=== PATIENT | male | born 1955 | race Caucasian/White ===

== ENCOUNTER 2019-03-15 13:59 | Inpatient (IN) ==
[2019-03-15] MEDS ORDERED: ZOFRAN IV PRN (17:06)
[2019-03-15] MEDS ORDERED: TYLENOL PO PRN (17:06)
[2019-03-15 18:00] LABS: WBC 6.01 X1000 (4.8-10.8)
[2019-03-15 18:01] LABS: BASO# 0.05 X1000 (0.0-0.2); BASO% 0.8 % (0.0-0.8); EOS# 0.16 X1000 (0.0-0.7); EOS% 2.7 % (0.0-10.0); HEMATOCRIT 47.6 % (42.0-52.0); LYMPH# 0.86 X1000 (1.2-3.4); LYMPH% 14.3 % (20.5-51.1); MCH 28.3 PG (27-31); MCHC 31.5 g/dL (33-37); MCV 89.8 FL (81-99); MONO# 0.32 X1000 (0.11-0.59); MONO% 5.3 % (1.7-9.3); MPV 10.5 FL (7.4-10.4); NEUT# 4.62 X1000 (1.4-6.5); NEUT% 76.9 % (42.2-75.2); PLT 209 X1000 (130-400); RDW 15.6 % (11.5-14.5)
[2019-03-15 18:12] LABS: INR 3.22; PROTIME 33.9 Seconds (11.0-16.0)
[2019-03-15 18:13] LABS: PTT 44.3 Seconds (22.3-41.8)
--- NOTE | 2019-03-15 18:22 | HISTORY AND PHYSICAL ---
CHIEF COMPLAIN: This patient has been transferred from [facility] due to abdominal distention and apparently the possibility of cecostomy tube malfunctioning. 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 Apparently the CVA was related to a thrombus at the level of the brain stem and since then, like I said, he has been quadriplegic. He is also nonverbal but he is able to understand my questions and answers all of them moving his head for yes or no. I do not have any family members at the bedside at this moment, but apparently he has been having abdominal distention for 2 weeks. He was admitted at [facility] on 03/10/2019 for abdominal distention. They tried some treatment on this patient but apparently it did not work. I have been told that there is a possibility that the cecostomy tube has been pulled out but again, I do not have that information with me. It looks like they communicated with Dr. Ye from Surgery Department and he will evaluate this patient here at [facility]. I am ordering lab work and images including chest x-ray and abdomen x-ray. Also I am getting electrolytes, CBC, CMP, PT, PTT, INR, CK level as well, CRP, blood culture, urinalysis with urine culture. I do not have any results back get. REVIEW OF SYSTEM: Unknown. Patient is not able to communicate with me and no family members are at the bedside. 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 FAMILY HISTORY: Noncontributory. SOCIAL HISTORY: It looks like this patient lives in a residential. ALLERGIES: Listed that he is allergic to fentanyl and Nubain. PHYSICAL EXAMINATION: VITAL SIGNS: Temperature 97.6 degrees, pulse 71, respiratory rate 24, blood pressure 130/86, oxygen saturation 100% on a trach collar. HEENT: Head normocephalic no trauma PERRLA. NECK: Supple. He does have a tracheostomy that looks fine. Central trachea. CHEST: Some crepitus at the bases. Decreased breath sounds at the bases as well. ABDOMEN: Soft. It is distended. Positive bowel sounds but decreased. He has a feeding tube and another tube on the right side of the abdomen. I do not see any secretions coming from it. EXTREMITIES: Trace edema. No clubbing. No cyanosis. He has a footdrop bilaterally. Decreased muscle mass. NEUROLOGICAL: This patient is awake, alert. He is following commands and answering my questions yes or no with moving his head, but he is unable to move his upper extremity or lower extremity; he is quadriplegic. LABORATORY: No lab work at this time. Pending results. ASSESSMENT AND PLAN: 1. Abdominal distention with the possibility of cecostomy tube malfunction. There is a possibility that this tube has been pulled out, but I am not quite sure. Apparently they talked already with Surgery Department which has accepted the patient. His abdomen is distended. Pending x-ray of the abdomen and chest x-ray as well. 2. Hypertension, stable. I do not see any blood pressure medication listed on his home medications, which we need to corroborate. Blood pressure at this moment seems to be stable. 3. Coagulopathy with chronic anticoagulation. For now I will hold the warfarin. I am not sure if this patient will have a procedure done. Probably he will need vitamin K and/or FFP to control his INR but I will wait for the results. 4. Brain stem infarct 15 years ago, resulting in quadriplegia. Aware. 5. History of chronic obstructive pulmonary disease, not in exacerbation. 6. Thrombocytopenia, history of. I do not have any results at this moment, I will wait for them. 7. Gastroesophageal reflux disease. I will put this patient on PPIs IV. 8. The patient seems to be stable at this moment. His abdomen is distended. Surgery Department will evaluate this patient. Pending chest x-ray, abdomen x-ray, and lab work at this moment. I will put him on IV fluids with normal saline and also Clinimix. Also I will put this patient n.p.o. I am not sure about his code status because the patient is by himself. I will wait for family members. cc: Darrius Suarez MD
[2019-03-15 18:23] LABS: AGAP 10; ALB/GLOB RATIO 0.9; ALBUMIN 2.9 g/dL (3.5-5.0); ALKALINE PHOSPHATASE 103 U/L (32-122); BUN 8 mg/dL (8-22); CALCIUM 7.6 mg/dL (8.8-10.2); CHLORIDE 115 mmol/L (98-107); COSMO 291; CREATININE 0.5 mg/dL (0.7-1.2); ESTIMATED GFR > 60; GLUCOSE 74 mg/dL (70-104); GOT 17 U/L (10-34); GPT 24 U/L (10-44); MAGNESIUM 2.2 mg/dL (1.5-2.7); POTASSIUM 4.2 mmol/L (3.5-5.1); SODIUM 148 mmol/L (136-145); TCO2 23 mmol/L (25-35); TOTAL BILIRUBIN 0.25 mg/dL (0.20-1.00); TOTAL PROTEIN 6.3 g/dL (6.3-8.3)
--- NOTE | 2019-03-15 18:45 | EKG Report ---
Test Performed on : 03/15/2019 6:00:01 PM Test Reason : rythm eval Blood Pressure : / mmHG Vent. Rate : 073 BPM Atrial Rate : 073 BPM P-R Int : 150 ms QRS Dur : 094 ms QT Int : 386 ms P-R-T Axes : 051 020 030 degrees QTc Int : 425 ms Normal sinus rhythm. Normal ECG When compared with ECG of 03-JUN-2014 12:56, Nonspecific T wave abnormality no longer evident in Anterior leads Confirmed by Pool PALACIO, Daren Skelton ([id number]) on 03/16/2019 7:04:25 AM
--- NOTE | 2019-03-15 19:14 | Diag Imaging Result Doc PS360 ---
EXAM: CHEST-2 VIEWS INDICATION: r/o pna TECHNIQUE: 2 views COMPARISON: 01/26/2016 FINDINGS: Tracheostomy tube is stable. There is stable elevation of the right hemidiaphragm with marked colonic distention underlying the diaphragms, which has also been seen on many previous studies and assumed to be chronic. There is suggestion of mild atelectasis at the lung bases. There is no discrete pleural fluid collection or pneumothorax. The cardiomediastinal silhouette and central vasculature are grossly unremarkable. IMPRESSION: Mild bibasilar subsegmental atelectasis. No definite acute chest pathology, otherwise. Electronically signed by Chandana Jon 03/15/2019 7:12 PM
--- NOTE | 2019-03-15 19:16 | Diag Imaging Result Doc PS360 ---
EXAM: ABDOMEN FLAT/UPRIGHT INDICATION: abd pain TECHNIQUE: 5 views COMPARISON: None. FINDINGS: There is massive gaseous distention of the colon. This has been seen on many previous studies and is essentially stable since the prior study in 2016. No large volume free abdominal gas is appreciated. Bilateral ureteral stents are noted and IVC filter is in place. IMPRESSION: Massive gaseous distention of the colon, which has been seen on many previous studies, likely chronic. Electronically signed by Chandana Jon 03/15/2019 7:14 PM
--- NOTE | 2019-03-15 20:25 | GENERAL SURGERY CONSULTATION ---
DATE: 03/15/2019 TIME SEEN: 8 p.m. Mr. La is a 64-year-old quadriplegic that I placed a tube cecostomy in 5 years ago for his chronic constipation and colon inertia. He apparently has done okay with that but has had the tube replaced a couple of times and most recently over a month ago only a small Gunter was placed which apparently has compromised his ability to evacuate air. He was admitted to the [facility] and they did not feel they could deal with this so he was transferred to the hospitalist service here and I have been asked to see him. His other medical problems include COPD, gastroesophageal reflux disease, hypertension, apparently history of coagulopathy, he has an IVC filter in place. SOCIAL HISTORY: He is . He does live in a chcf. MEDICATIONS: Listed. ALLERGIES: He is allergic to fentanyl and Nubain. REVIEW OF SYSTEMS: Really not obtainable. EXAM: He is afebrile. Heart rate 70, blood pressure 138/86.Lungs: Bilateral breath sounds. He has a tracheostomy. Heart: Regular rate and rhythm. Abdomen: Soft. It is distended, tympanitic. He has a small catheter exiting the right lower quadrant stoma site. He is awake and alert. LABS: White count 6000, hemoglobin 15, PT 33, INR 3.22. Chemistry is okay. ASSESSMENT: Chronic constipation with colon distention. PLAN: The plan will be to try to upsize his cecostomy tube to help decompress his colon. cc: Fadi Ye MD
[2019-03-15] MEDS: NS 1,000 ML IV SCH (22:42)
[2019-03-15] MEDS: CLINIMIX E 4.25%-5% SOLUTION 1,000 ML IV SCH (22:43)
[2019-03-16] MEDS: PROTONIX IV SCH (05:29)
[2019-03-16] MEDS: SODIUM CHLORIDE 0.9% INJ SCH (05:29)
[2019-03-16 06:11] LABS: BILIRUBIN URINE NEGATIVE (NEGATIVE); BLOOD URINE MODERATE (NEGATIVE); COLOR YELLOW; GLUCOSE URINE NEGATIVE (NEGATIVE); KETONE URINE NEGATIVE (NEGATIVE); LEUKOCYTES URINE MODERATE (NEGATIVE); NITRITE URINE NEGATIVE (NEGATIVE); PH URINE 7.5; PROTEIN URINE 50 mg/dL (NEGATIVE); SP GRAVITY URINE 1.009; TURBIDITY URINE HAZY (CLEAR); URINE SOURCE CATH; UROBILINOGEN URINE NORMAL (NORMAL)
[2019-03-16 06:12] LABS: UR EPITHELIAL CELLS >10 /HPF (<10); URINE BACTERIA NEGATIVE /HPF; URINE RBC TNTC /HPF (<10)
[2019-03-16 07:23] LABS: BASO# 0.03 X1000 (0.0-0.2); BASO% 0.5 % (0.0-0.8); EOS# 0.19 X1000 (0.0-0.7); EOS% 2.9 % (0.0-10.0); HEMATOCRIT 44.9 % (42.0-52.0); HEMOGLOBIN 14.1 g/dL (14.0-18.0); LYMPH# 1.03 X1000 (1.2-3.4); LYMPH% 15.9 % (20.5-51.1); MCH 28.1 PG (27-31); MCHC 31.4 g/dL (33-37); MCV 89.6 FL (81-99); MONO# 0.42 X1000 (0.11-0.59); MONO% 6.5 % (1.7-9.3); MPV 11.3 FL (7.4-10.4); NEUT# 4.81 X1000 (1.4-6.5); NEUT% 74.2 % (42.2-75.2); PLT 194 X1000 (130-400); RBC 5.01 XMIL (4.7-6.1); RDW 15.5 % (11.5-14.5); WBC 6.48 X1000 (4.8-10.8)
[2019-03-16 07:29] LABS: AGAP 7; ALB/GLOB RATIO 0.8; ALBUMIN 2.7 g/dL (3.5-5.0); ALKALINE PHOSPHATASE 104 U/L (32-122); BUN 7 mg/dL (8-22); CALCIUM 7.5 mg/dL (8.8-10.2); CHLORIDE 114 mmol/L (98-107); COSMO 282; CREATININE 0.5 mg/dL (0.7-1.2); ESTIMATED GFR > 60; GLUCOSE 82 mg/dL (70-104); GOT 20 U/L (10-34); GPT 23 U/L (10-44); POTASSIUM 3.8 mmol/L (3.5-5.1); SODIUM 143 mmol/L (136-145); TCO2 22 mmol/L (25-35); TOTAL BILIRUBIN 0.34 mg/dL (0.20-1.00); TOTAL PROTEIN 6.2 g/dL (6.3-8.3)
--- NOTE | 2019-03-16 08:01 | PROGRESS NOTE ---
DATE: 03/16/2019 SUBJECTIVE: This patient is lying comfortably in bed. His is at the bedside. He was evaluated by the surgery department yesterday, Dr. Ye, and the plan is to try to upsize his cecostomy tube to help decompress his colon. I will try to discuss the case with Dr. Ye today. His INR is still supratherapeutic. I have been holding his medications. OBJECTIVE: Vital Signs: Temperature 97.6 degrees, pulse 73, respiratory rate 18, blood pressure 115/78, oxygen saturation 94% on a trach collar. HEENT: Head normocephalic. No trauma. PERRLA. Neck: Supple. He has a tracheostomy tube that looks fine. Central trachea. Chest: Some crepitus at the bases. Decreased breath sounds at the bases as well. Abdomen: Soft. It is distended. Decreased bowel sounds. He has a feeding tube and he has a cecostomy tube in his abdomen. I do not see any secretion coming out from it. No signs of infection. Extremities: Trace edema. No clubbing. No cyanosis. He has bilateral footdrop. Decreased muscle mass. Neurological Examination: This patient is awake. He is alert. He is following commands and answering my questions. He is moving his head but he is not able to talk. He is quadriplegic. Laboratory: WBCs 6.4, hemoglobin 14.1, hematocrit 44.9, platelets 194,000. Pending CMP, pending PT/INR. ASSESSMENT AND PLAN: 1. Abdominal distention with the possibility of cecostomy tube malfunction. Dr. Ye has been requested to evaluate this patient and he did it yesterday night. The plan is to upsize the cecostomy tube. I am not quite sure if he is going for surgery today or tomorrow. I will keep this patient nothing per oral and I will continue with intravenous fluids. 2. Hypertension, stable. 3. Coagulopathy with chronic anticoagulation. This patient has been on warfarin, which has been on hold. INR is supratherapeutic. I will ask surgery department to see if they want me to decrease the INR and probably put him on a heparin drip. 4. Brainstem infarct 15 years ago, resulting in quadriplegia. Aware. He also has a tracheostomy tube in place and a feeding tube. 5. History of chronic obstructive pulmonary disease, not in exacerbation. 6. Thrombocytopenia, history of. His platelet count looks good. 7. Gastroesophageal reflux disease. Continue with proton pump inhibitors intravenously. 8. Supratherapeutic INR. Like I mentioned before, I have been holding the warfarin. If he is going for surgery, probably I need to give him some vitamin K and/or fresh frozen plasma to try to improve the number. 9. Hypernatremia. From lab work done yesterday in the afternoon, I have repeated the CMP in the morning but it is pending at this time. For now, we will continue with the same management. He seems to be stable, pending results. cc: Darrius Suarez MD
[2019-03-16 08:19] LABS: INR 3.56; PROTIME 36.7 Seconds (11.0-16.0)
[2019-03-16 08:20] LABS: PTT 47.4 Seconds (22.3-41.8)
[2019-03-16] MEDS: HYDROCODONE/APAP 7.5-325/15 ML PEG PRN ×3 (11:23→22:00)
[2019-03-16] MEDS: NS 1,000 ML IV SCH ×2 (11:31→21:59)
[2019-03-16] MEDS ORDERED: TEARISOL OPH SOLUTION BOTH EYES PRN ×2 (12:05→12:49)
[2019-03-16] MEDS ORDERED: FLEET ENEMA PR PRN (12:05)
[2019-03-16] MEDS ORDERED: COLACE LIQUID GT PRN (12:05)
--- NOTE | 2019-03-16 13:52 | Diag Imaging Result Doc PS360 ---
EXAM: KUB ABDOMEN 03/16/2019 HISTORY: evaluate position of cecostomy tube TECHNIQUE: Two views, pre and post administration of water-soluble contrast through the Malecot cecostomy catheter. COMMENT: There is a large amount of colonic gas throughout the abdomen. There is retained contrast medium in the urinary bladder. Following injection of contrast through the cecostomy catheter there is contrast within the cecum. IMPRESSION: Cecostomy catheter in the cecum. Electronically signed by Balta Liao 03/16/2019 1:50 PM
[2019-03-16] MEDS ORDERED: NEUTRA-PHOS GT SCH (15:00)
[2019-03-16] MEDS: NEUTRA-PHOS GT SCH ×2 (16:22→21:58)
--- NOTE | 2019-03-16 18:48 | OPERATIVE NOTE ---
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 PREOP DIAGNOSIS: Cecostomy tract stenosis. POSTOP DIAGNOSIS: Cecostomy tract stenosis. This is a quadriplegic 64-year-old who had a cecostomy tube placed 5 years ago. It came out a few months ago and was replaced with a very small like 12 Gunter catheter even possibly a 10 size. This has allowed this tract to narrow and does not empty the cecum adequately. DESCRIPTION OF PROCEDURE: Time-out was accomplished. We decompressed the Gunter and removed it. We then took Hegar dilators and lubricated with KY jelly and began with the smallest one and then progressively worked up with the Hegar dilators until we could admit possibly a 26 Mallinckrodt catheter, were able to introduce a 26 Mallinckrodt catheter. Air did come out and stool as well came out through the Mallinckrodt catheter indicating adequate and appropriate placement. He tolerated it well. An x-ray was ordered. cc: Fadi Ye MD MTDD
[2019-03-16] MEDS: CLINIMIX E 4.25%-5% SOLUTION 1,000 ML IV SCH (21:59)
[2019-03-16] MEDS: TOPAMAX GT SCH (21:59)
[2019-03-16] MEDS: SYSTANE EYE DROPS BOTH EYES SCH (21:59)
[2019-03-16] MEDS: PERICOLACE PEG SCH (21:59)
[2019-03-16] MEDS: WELLBUTRIN PEG SCH (22:00)
[2019-03-17] MEDS: SODIUM CHLORIDE 0.9% INJ SCH (06:45)
[2019-03-17] MEDS: PROTONIX IV SCH (06:45)
[2019-03-17 07:52] LABS: AGAP 9; BUN 8 mg/dL (8-22); CHLORIDE 114 mmol/L (98-107); GLUCOSE 84 mg/dL (70-104); POTASSIUM 3.5 mmol/L (3.5-5.1); SODIUM 145 mmol/L (136-145); TCO2 22 mmol/L (25-35)
[2019-03-17 07:53] LABS: ALBUMIN 2.4 g/dL (3.5-5.0); CALCIUM 7.6 mg/dL (8.8-10.2); COSMO 286; CREATININE 0.5 mg/dL (0.7-1.2); ESTIMATED GFR > 60; MAGNESIUM 1.9 mg/dL (1.5-2.7); PHOSPHORUS 2.1 mg/dL (2.7-4.5)
[2019-03-17 08:12] LABS: INR 2.63; PROTIME 28.8 Seconds (11.0-16.0)
[2019-03-17] MEDS ORDERED: TRANSDERM-SCOP TD SCH (09:00)
[2019-03-17] MEDS: WELLBUTRIN PEG SCH ×2 (09:48→22:24)
[2019-03-17] MEDS: TOPAMAX GT SCH ×2 (09:48→22:24)
[2019-03-17] MEDS: NEUTRA-PHOS GT SCH ×3 (09:48→22:25)
[2019-03-17] MEDS: PEPCID PEG SCH (09:48)
[2019-03-17] MEDS: MIRALAX PEG SCH (09:48)
[2019-03-17] MEDS: CYMBALTA PEG SCH (09:48)
[2019-03-17] MEDS: CLARITIN PEG SCH (09:48)
[2019-03-17] MEDS ORDERED: POTASSIUM PHOSPHATE 21 MMOL in NS 250 ML IV ONE (10:56)
[2019-03-17] MEDS: NS 1,000 ML IV SCH ×2 (12:38→15:51)
[2019-03-17] MEDS: CLINIMIX E 4.25%-5% SOLUTION 1,000 ML IV SCH ×2 (12:41→15:51)
--- NOTE | 2019-03-17 16:17 | PROGRESS NOTE ---
DATE: 03/17/2019 SUBJECTIVE: This patient is lying comfortably in bed. His is at the bedside. He is status post cecostomy tube removal and replacement postoperative day #1 due to cecostomy tract stenosis, it looks like he is doing much better. His abdomen is not that distended compared with yesterday, much better. We will continue with his home medications including warfarin, we will treat this patient the same way he was treated before coming to the hospital at the longterm. If he starts having normal bowel movements like before he will be discharged back to his longterm. OBJECTIVE: Vital Signs: Temperature 98.1 degrees, pulse 77, respiratory rate 16, blood pressure 116/80, oxygen saturation 93 on the tracheostomy collar. HEENT: Head normocephalic, no trauma. PERRLA. Neck: Supple. No JVD. Central trachea. He has a tracheostomy tube that looks fine. Chest: Crepitus at the bases, some decreased breath sounds at the bases as well. Abdomen: Soft, is not distended at this moment. Decreased bowel sounds, he has a feeding tube which is new and a cecostomy tube in the abdomen, I do not see any signs of infection. Extremities: Trace edema, no clubbing, no cyanosis. He has bilateral footdrop, decreased muscle mass. Neurologic: The patient is awake, he is alert. He is following commands and answering my questions. He is moving his head and he is not able to talk. He is quadriplegic. LABORATORY: PT 28.8, INR 2.6. Sodium 145, potassium 3.5, chloride 114, bicarbonate 22, BUN 8, creatinine 0.5, glucose 84, calcium 7.6, magnesium 1.9. ASSESSMENT AND PLAN: 1. Abdominal distention due to cecostomy tract stenosis, the cecostomy tube has been replaced and now is working fine. His abdominal distention is much better, surgery department on board. Once this patient has a regular bowel movement like before we will go ahead and discharge this patient home. 2. Hypertension stable. 3. Coagulopathy with chronic anticoagulation. I will put this patient back on his warfarin. 4. Brain stem infarct 15 years ago resulting in quadriplegia, aware. He also has a tracheostomy tube in place and a feeding tube. 5. History of chronic obstructive pulmonary disease, not in exacerbation. 6. Thrombocytopenia history of, platelet count has been good. 7. Gastroesophageal reflux disease. Continue with PPIs. 8. Supratherapeutic INR, resolved. I will put this patient back on his warfarin. 9. Hypernatremia resolved. 10. Nutritional status. The arborist climber has been placed this patient on a diet. I will decrease the rate of the normal saline and I will increase a little bit the rate of the Clinimix. 11. Hypophosphatemia. I will replace it. cc: Darrius Suarez MD
[2019-03-17] MEDS: HYDROCODONE/APAP 7.5-325/15 ML PEG PRN ×2 (17:44→22:24)
--- NOTE | 2019-03-17 21:45 | GENERAL SURGERY PROGRESS NOTE ---
DATE: 03/17/2019 Mr. La significantly improved today with significant decompression of his GI tract through the Mallinckrodt catheter. He is very pleased with how he has feels today compared to yesterday. I think it is fine for him to go back to his long-term facility and resume his usual bowel regimen there. cc: Fadi Ye MD
[2019-03-17] MEDS: COUMADIN PO SCH (22:24)
[2019-03-17] MEDS: PERICOLACE PEG SCH (22:24)
--- NOTE | 2019-03-18 04:53 | PROGRESS NOTE ---
DATE: 03/17/2019 Called to the bedside. The patient's Mallinckrodt drain to his cecum had been removed, replaced it after doing KY jelly and a hemostat to straighten out the mushroom part of the Mallinckrodt, and replaced it through the previous drain site. Shot a contrast study or tubogram. It appears to my read that it looks like it is in the cecum. Patient tolerated well. We will have the nurses secure it, and continue to monitor. It was previously clamped, so we will have it clamped for right now. cc: Jacob Negro MD MTDSantosh
--- NOTE | 2019-03-18 05:08 | Diag Imaging Result Doc PS360 ---
EXAM: KUB ABDOMEN HISTORY: tubogram of cecostomy tube replacement TECHNIQUE: Abdomen single view COMPARISON: 03/16/2019 FINDINGS: There is a right lower quadrant catheter. Contrast flows through the catheter and enters a tubular structure which could be the cecum although it has not flown freely into the colon. There are bilateral ureteral stents and an inferior vena caval filter. Air-filled loops of bowel throughout the colon. Electronically signed by Diogenes Mcqueen 03/18/2019 5:06 AM
[2019-03-18] MEDS: SYSTANE EYE DROPS BOTH EYES SCH ×2 (05:57→21:16)
[2019-03-18] MEDS: SODIUM CHLORIDE 0.9% INJ SCH (06:27)
[2019-03-18] MEDS: PROTONIX IV SCH (06:27)
[2019-03-18 06:39] LABS: INR 1.7; PROTIME 20.3 Seconds (11.0-16.0)
[2019-03-18 07:09] LABS: BASO# 0.02 X1000 (0.0-0.2); BASO% 0.2 % (0.0-0.8); EOS# 0.09 X1000 (0.0-0.7); EOS% 0.8 % (0.0-10.0); HEMATOCRIT 45.4 % (42.0-52.0); HEMOGLOBIN 14.5 g/dL (14.0-18.0); IMM GRAN# 0.02 X1000 (0.0-0.04); IMM GRAN% 0.2 % (0.0-0.5); LYMPH# 0.86 X1000 (1.2-3.4); MCH 28.3 PG (27-31); MCHC 31.9 g/dL (33-37); MCV 88.7 FL (81-99); MONO# 0.52 X1000 (0.11-0.59); MONO% 4.8 % (1.7-9.3); NEUT# 9.23 X1000 (1.4-6.5); PLT 192 X1000 (130-400); RBC 5.12 XMIL (4.7-6.1); RDW 15.8 % (11.5-14.5); WBC 10.74 X1000 (4.8-10.8)
[2019-03-18 07:11] LABS: AGAP 9; ALBUMIN 2.9 g/dL (3.5-5.0); BUN 12 mg/dL (8-22); CHLORIDE 109 mmol/L (98-107); COSMO 283; CREATININE 0.5 mg/dL (0.7-1.2); ESTIMATED GFR > 60; GLUCOSE 92 mg/dL (70-104); MAGNESIUM 1.9 mg/dL (1.5-2.7); PHOSPHORUS 2.5 mg/dL (2.7-4.5); SODIUM 142 mmol/L (136-145); TCO2 24 mmol/L (25-35)
[2019-03-18 08:00] LABS: LYMPHS 5 % (21-51); MONO 3 % (1-9); SEGS 92 % (42-75)
[2019-03-18] MEDS: MIRALAX PEG SCH ×2 (09:30→16:57)
[2019-03-18] MEDS: PEPCID PEG SCH ×2 (09:31→16:57)
[2019-03-18] MEDS: CLARITIN PEG SCH ×2 (09:31→16:56)
[2019-03-18] MEDS: WELLBUTRIN PEG SCH ×3 (09:31→21:16)
[2019-03-18] MEDS: TOPAMAX GT SCH ×3 (09:31→21:16)
[2019-03-18] MEDS: NEUTRA-PHOS GT SCH ×3 (09:31→21:16)
[2019-03-18] MEDS: CYMBALTA PEG SCH ×2 (09:31→16:57)
--- NOTE | 2019-03-18 10:49 | GENERAL SURGERY PROGRESS NOTE ---
DATE: 03/18/2019 Mr. La apparently had his cecostomy tube displaced last night, replaced by Dr. Negro. It appears of satisfactory position. His abdomen remains soft. From my perspective, he can go back to the detention. cc: Fadi Ye MD
[2019-03-18] MEDS: CLINIMIX E 4.25%-5% SOLUTION 1,000 ML IV SCH (11:25)
--- NOTE | 2019-03-18 12:14 | PROGRESS NOTE ---
DATE: 03/18/2019 SUBJECTIVE: This patient is lying comfortably in bed. It looks like the cecostomy tube was displaced last night and replaced by Dr. Negro, this is working fine. The PEG tube now is not working. We will try to open this up so we can continue with his feeding tube and treatment, no bowel movement so far. OBJECTIVE: Vital Signs: Temperature 98.1 degrees, pulse 79, respiratory rate 16, blood pressure 118/80, oxygen saturation 99 on a trach collar. HEENT: Head normocephalic. No trauma. PERRLA. Neck: Supple no JVD. No masses. Central trachea, he does have a tracheostomy. Chest: Some crepitus at the bases. Decreased breath sounds at the bases as well. Abdomen: Soft, is not distended. Decreased bowel sounds. He has a feeding tube and also a new cecostomy tube in his abdomen. No signs of infection. Extremities: Trace edema. No clubbing, no cyanosis. He has bilateral footdrop, decreased muscle mass. Neurological: The patient is awake, he is alert, he is following commands and answering my questions by moving his head for yes or no. He is quadriplegic. LABORATORY DATA: WBC 10.7, hemoglobin 14.5, hematocrit 45.4, platelets 192,000. Sodium 142, potassium 4, chloride 109, bicarbonate 24, BUN 12, creatinine 0.5, glucose 92, calcium 8. Phosphorus 2.5. INR is 1.7. ASSESSMENT AND PLAN: 1. Abdominal distention due to cecostomy tract stenosis. The cecostomy tube has been replaced yesterday again because of dislodge, and now is working fine. His abdominal distention is much better. The only problem is his percutaneous endoscopic gastrostomy tube that is not working at this moment. We will try to resolve this problem before sending him back to the halfway. 2. Hypertension, stable. 3. Coagulopathy with chronic anticoagulation. Continue with warfarin. 4. Brainstem infarct 15 years ago resulting in quadriplegia, aware. He also has a tracheostomy tube in place and feeding tube. 5. History of chronic obstructive pulmonary disease, not in exacerbation. 6. Thrombocytopenia, history of. Platelet count has been good. 7. Gastroesophageal reflux disease. Continue proton pump inhibitors. 8. Supratherapeutic INR, resolved. Continue with warfarin, is a little bit subtherapeutic now. 9. Hypernatremia, resolved. 10. Nutritional status. Continue with same management. We are trying to open up the percutaneous endoscopic gastrostomy tube. 11. Hypophosphatemia. It has been replaced. Today is much better. cc: Darrius Suarez MD
[2019-03-18] MEDS: MIRALAX PO SCH (16:56)
--- NOTE | 2019-03-18 19:03 | Diag Imaging Result Doc PS360 ---
EXAM: KUB ABDOMEN HISTORY: verify PEG placement TECHNIQUE: Abdomen single view COMPARISON: 03/17/2019 FINDINGS: Interval placement of a gastric catheter. Contrast placed through this catheter does fill the stomach. However, there is contrast within the right lower quadrant. I am unsure if this is from the cecostomy catheter or if this is free in the abdomen. A follow-up CT may be beneficial. Electronically signed by Diogenes Mcqueen 03/18/2019 7:01 PM
[2019-03-18] MEDS: PERICOLACE PEG SCH (21:16)
[2019-03-18] MEDS: COUMADIN PO SCH (21:16)
[2019-03-18] MEDS: HYDROCODONE/APAP 7.5-325/15 ML PEG PRN (21:17)
--- NOTE | 2019-03-19 02:17 | OPERATIVE NOTE ---
PROCEDURE DATE: 03/18/2019 PROCEDURE: Percutaneous endoscopic gastrostomy tube replacement. HISTORY: This 64-year-old white male, who is quadriplegic and completely dependent on tube feeding, has gastrostomy and PEG tube in place. His PEG tube got clogged and nutrition or medication could not be given through the PEG tube. DESCRIPTION OF PROCEDURE: Informed consent obtained from the patient's family member. Procedure risks, benefits, alternatives were explained in layman's terms. They understood and agreed to proceed, she wanted to watch the procedure done. The patient was put in supine position. The PEG site was cleansed with Betadine. Then, I deflated the balloon by removing the water out of the balloon, and then the old PEG tube was removed. Which appeared to be either 20-Nicaraguan or 24- [place]ar[place]uan. After removing the PEG tube, I did clean the area with Betadine again. After adequate cleaning, I dilated the gastrostomy site up to 25-Nicaraguan, and then placed a 24-Nicaraguan replacement PEG tube into the stomach. The balloon was inflated with 20 mL of water and the outer bumper was placed in adequate position. IMPRESSION: Malfunctioning PEG tube. PEG tube replaced. PLAN: I would get a KUB with Gastrografin through the PEG tube to confirm placement. Once the placement is confirmed, he will be started on his regular tube feeding and his medication can be given through the PEG tube. cc: William Lakhani MD
--- NOTE | 2019-03-19 02:24 | GASTROENTEROLOGY CONSULTATION ---
DATE: 03/18/2019 CONSULTING PHYSICIAN: Dr. ePreyra. REASON FOR CONSULTATION: Malfunctioning PEG tube. HISTORY OF PRESENT ILLNESS: This is a 64-year-old white male who is paraplegic and on complete bedrest. He is on 100% care. He has a PEG tube for nourishment, unfortunately the PEG tube got clogged last night and since then he has not been able to get his medication or his nutrition. Consult was requested for malfunctioning PEG tube. The patient is unable to communicate, most of the information was obtained from the chart as well as from his family member present at the bedside. She said that he has not been able to get any food or medication since it caught clogged yesterday; however, he has not had any complaints of abdominal pain, nausea or vomiting, and has not had any other GI problems. 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 He has a tracheostomy and cecostomy, as well as gastrostomy tube. He had his cecostomy redone last night. He has also has an IVC filter in place. He carries a diagnosis of COPD, has gastroesophageal reflux disease. Other social history family history, review of system etc. could not be obtained from the patient, he is noncommunicative. PHYSICAL EXAMINATION: General: The patient is lying in bed. Vital Signs: Temperature is 99.1 degrees Fahrenheit, pulse is 88 per minute, respirations 16, blood pressure is 122/74 . HEENT: Head is atraumatic and normocephalic. Eyes: Conjunctivae is normal. Sclerae are anicteric. Nares are patent. No discharge. Mouth: Buccal mucosa is dry. Throat is normal. He has got a tracheostomy present. Chest: Breath sounds are audible bilaterally, but harsh. Heart: S1, S2 audible. No murmur could be appreciated. ABDOMEN: Has got a PEG tube placed in the left upper quadrant area. PEG site is clean and dry. Abdomen is otherwise soft, it is nontender, I could not appreciate a mass or visceromegaly. Bowel sounds are audible. Extremities: No pedal edema noted. LABORATORY DATA: Labs reviewed from the computer, his PT is 20.3, INR 1.70. Otherwise labs are normal except albumin was 2.9 only. IMPRESSION: Malfunctioning PEG tube status post gastrostomy and PEG tube placement. PLAN: I would replace the PEG tube at the bedside. The risks, benefits and alternatives were explained to the family member, she understood and all the pertinent questions were answered. We will proceed as soon as we get the replacement PEG tube available. cc: William Lakhani MD
[2019-03-19] MEDS: SODIUM CHLORIDE 0.9% INJ SCH (06:18)
[2019-03-19] MEDS: PROTONIX IV SCH (06:19)
[2019-03-19 06:49] LABS: BASO# 0.02 X1000 (0.0-0.2); BASO% 0.3 % (0.0-0.8); EOS# 0.13 X1000 (0.0-0.7); EOS% 1.9 % (0.0-10.0); HEMATOCRIT 42.3 % (42.0-52.0); HEMOGLOBIN 13.6 g/dL (14.0-18.0); LYMPH# 0.95 X1000 (1.2-3.4); MCH 28.5 PG (27-31); MCHC 32.2 g/dL (33-37); MCV 88.5 FL (81-99); MONO# 0.48 X1000 (0.11-0.59); MONO% 7.1 % (1.7-9.3); MPV 10.5 FL (7.4-10.4); NEUT# 5.19 X1000 (1.4-6.5); NEUT% 76.7 % (42.2-75.2); PLT 168 X1000 (130-400); RBC 4.78 XMIL (4.7-6.1); RDW 15.6 % (11.5-14.5); WBC 6.77 X1000 (4.8-10.8)
[2019-03-19 06:50] LABS: INR 1.77
[2019-03-19 07:09] LABS: AGAP 10; BUN 17 mg/dL (8-22); CALCIUM 7.9 mg/dL (8.8-10.2); CHLORIDE 111 mmol/L (98-107); COSMO 284; CREATININE 0.5 mg/dL (0.7-1.2); ESTIMATED GFR > 60; GLUCOSE 92 mg/dL (70-104); POTASSIUM 3.5 mmol/L (3.5-5.1); SODIUM 142 mmol/L (136-145); TCO2 21 mmol/L (25-35)
[2019-03-19] MEDS: CLINIMIX E 4.25%-5% SOLUTION 1,000 ML IV SCH (07:50)
[2019-03-19] MEDS: NS 1,000 ML IV SCH (07:51)
[2019-03-19] MEDS: PEPCID PEG SCH (09:10)
[2019-03-19] MEDS: CLARITIN PEG SCH (09:10)
[2019-03-19] MEDS: TOPAMAX GT SCH (09:10)
[2019-03-19] MEDS: CYMBALTA PEG SCH (09:10)
[2019-03-19] MEDS: WELLBUTRIN PEG SCH (09:10)
[2019-03-19] MEDS: MIRALAX PEG SCH (09:10)
[2019-03-19] MEDS: NEUTRA-PHOS GT SCH (09:11)
[2019-03-19] MEDS: MIRALAX PO SCH (09:11)
--- NOTE | 2019-03-19 11:36 | DISCHARGE SUMMARY ---
ADMISSION DATE: 03/15/2019 DISCHARGE DATE: 03/19/2019 CONSULTATIONS: 1. Dr. Fadi eY with General Surgery. 2. Dr. Lakhani with Gastroenterology. PERTINENT PROCEDURES: 1. Abdominal x-ray. Massive gaseous distention of the colon which has been seen on many previous studies, likely chronic. 2. Chest x-ray. Mild bibasilar segmental atelectasis. No definite acute chest pathology. 3. Cecostomy tract stenosis with dilatation and insertion of a larger catheter performed by Dr. Ye. 4. PEG tube replacement performed by Dr. Lakhani. DISCHARGE DIAGNOSES: 1. Malfunctioning PEG tube. This was replaced by Dr. Lakhani. 2. 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 3. Hypertension, stable. 4. Coagulopathy with chronic anticoagulation. Continue warfarin. 5. Brainstem infarct 15 years ago, resulting in quadriplegia, aware. He also has tracheostomy tube in place for tube feedings. 6. Chronic obstructive pulmonary disease, not in exacerbation. 7. Aspiration. 8. Thrombocytopenia, stable. 9. Gastroesophageal reflux disease. Continue proton pump inhibitor. 10. Supratherapeutic INR, resolved. Continue warfarin. 11. Hypernatremia, resolved. 12. Nutritional status. Continue with PEG tube feedings as per patient's home regimen. 13. Hypophosphatemia that has been replaced. HOSPITAL COURSE: Briefly, Mr. La is a 62-year-old gentleman who is a paraplegic and on complete bed rest. He is 100% care. He has a PEG tube for nourishment. Unfortunately, his PEG tube got clogged and had been unable to get medications or nutrition. GI was consulted for replacement of his PEG tube. He was also sent I believe from [facility] for replacement of his cecostomy tube that was put in by doctor 5 years ago. He was having abdominal distention. His tubes have been replaced, but with a very small Gunter and it compromised his ability to evacuate air, and his tube was replaced and his stenosis was dilatated by Dr. Ye. This has helped to decompress his colon and he has had a large bowel movement and will be discharged back to rehab today. VITAL SIGNS: At time of discharge, temperature is 97.9 degrees, heart rate 70, respirations 16, blood pressure 128/85, O2 is 93% on trach collar. DISCHARGE DIET: PEG tube feeds. DISCHARGE MEDICATIONS: 1. Coumadin 10 mg p.o. at bedtime. 2. Claritin 10 mg PEG tube daily. 3. Diocto 10 mL G-tube b.i.d. p.r.n. 4. Fleet enemas 1 application p.r. p.r.n. 5. Pepcid 20 mg PEG tube daily. 6. Refresh Tears 1 drop ophthalmic p.r.n. 7. Senna Plus 1 tablet PEG tube at bedtime. 8. Systane eyedrops 1 drop both eyes at bedtime. 9. Scopolamine patch topical q.72 hours. 10. Wellbutrin 100 mg p.o. as ordered b.i.d. 11. Finley 7.5/325, 15 mL PEG tube q.4 hours p.r.n. 12. MiraLAX 17 g PEG tube daily p.r.n. 13. Topamax 100 mg G-tube b.i.d. 14. Tylenol 650 mg p.o. q.6 hours p.r.n. FOLLOWUP: Mr. La is being discharged back to rehab where he will continue to be fully cared for. He can return to the ED or call 911 for any worsening of symptoms. Dictated by THANIA Gore for Darrius Suarez MD cc: Darrius Suarez MD
[2019-03-19 12:22] VITALS: BP 126/84
[2019-03-19] MEDS: HYDROCODONE/APAP 7.5-325/15 ML PEG PRN (12:31)
[2019-03-19] MEDS ORDERED: PNEUMOVAX 23 IM ONE (13:00)
== END 2019-03-19 13:26 | DRG 393 ==
LOC: DIRADM 13:59 → 4N 17:02
PROVIDERS: ATTEND Internal Medicine